=== PATIENT | female | born 1970 | race Caucasian/White ===

== ENCOUNTER 2023-11-09 23:46 | Observation (INO) | payer BC, SELFPAY ==
[2023-11-09 18:00] VITALS: BP 176/99
--- NOTE | 2023-11-09 19:27 | ED.GENMED ---
History of Present Illness
General
Chief Complaint: Dizziness
Source: patient
Time Seen by Provider: 11/09/23 19:05
Travel History
Have you had any contact with someone who has COVID-19?: No
Do you have any symptoms of coronavirus? Fever > 100 degrees, chills, cough, shortness of breath, sore throat, loss of taste or smell, muscle aches, or headache?: No
History of Present Illness
History of Present Illness:
This patient is a 53-year-old female who says that she was feeling her usual self until Tuesday when she got a massage. She was laying face down and was asked to assume the supine position. As soon as she did that she says she got the abrupt onset
of nausea and a 'spinning college drunk' sensation. She was able to complete the massage but when she stood up she again had an episode of vertigo. She says that since then, she notes recurrent episodes particularly when she rolls over or moves a
certain way. Yesterday, she was continue to have intermittent episodes of vertigo with certain movements but it was happening less frequently. She went to work today and had an episode while she was working in a closet but it is resolved. However
later today at approximately 2 PM while having her eyelashes done she felt like she was going to fall over when she sat up associated with nausea and dizziness described as spinning. She feels like it has not stopped since then, and worsens when
she moves a certain way. She denies double vision, chest pain, shortness of breath, trouble swallowing, slurred speech. She denies recent URI but does note a history of environmental allergies. When asked about weakness she denies weakness per se
but states that her left leg is kind of felt like it is 'giving out' from time to time which happens when she gets bursitis. She denies recent falls.
Pt got botox in forehead area bout 4 wks ago. On about October 27, L eye started to feel sl numb in upper lid and droopy. She doesn't appreciate a droop in mirror, however. No blurry vision.
Past History
Past History
ED Past Medical History: Asthma and Other (Erler's Danlos syndrome, ADHD)
ED Past Surgical History: Appendectomy (Carcinoid tumor) and Orthopedic
Social History
Tobacco: Former smoker
Alcohol: Occasional
Drug: None
Personal:
Living: with family
Employment: Employed
Phy Exam
Physical Exam
Physical Exam:
GENERAL: Alert , in no apparent distress
EYE: pupils equal and reactive, no photophobia, EOMI, no nystagmus through full range of motion
NECK: Supple, no significant adenopathy.
ENT: o/p clr, mmm.
CARDIAC: Regular rate and rhythm .
LUNGS: Clear breath sounds bilaterally, no acute respiratory distress, no wheezes/rales/rhonchi
ABDOMEN: Soft, without focal tenderness, no r/g, no cvat
NEUROLOGICAL: Alert and oriented, no focal neuro deficits, motor 5 out of 5, sensory intact, cranial nerves II through XII intact, [id number] normal
SKIN: Warm and dry, skin intact.
MUSCULOSKELETAL: No edema, well perfused.
PSYCH: Normal and appropriate interaction.
Course
Orders/Labs/Results
Orders:
Orders
11/09/23 18:04
Electrocardiogram (*1) Urgent
Reason for Study: Chest Pain
EKG- Treatment ONCE
11/09/23 19:27
CT Head & Neck Angio W/wo IV Urgent
Comment:
Reason For Exam: hx erhlos danlos syn, vertigo s/p neck massage
Cardiac Monitoring- Treatment ONCE
diazePAM [Valium Injection] 2 mg IV NOW STA
11/09/23 20:08
Basic Metabolic Panel Urgent
Complete Blood Count/No Diff Urgent
Abnormal Lab Results
11/09/23
20:08
MCH 31.3 H pg
(27.0-31.0)
BUN 26 H mg/dl
(7-17)
Creatinine 0.4 L mg/dL
(0.6-1.0)
Glucose 111 H mg/dl
(70-99)
11/09/23 20:08
11/09/23 20:08
Vital Signs
Initial and Last Documented VS:
Initial Vital Signs
Temp Pulse Resp BP Pulse Ox
98.1 F 71 20 176/99 100
11/09/23 18:00 11/09/23 18:00 11/09/23 18:00 11/09/23 18:00 11/09/23 18:00
Last Documented Vital Signs
Temp Pulse Resp BP Pulse Ox
98.1 F 69 14 123/83 98
11/09/23 18:00 11/09/23 22:01 11/09/23 22:01 11/09/23 22:01 11/09/23 22:01
*Critical Care Note
Total Time (30-74mins, 75-104mins- exclusive of procedures): Not Applicable
Update Note
Update Note:
Patient presents to the Emergency Department with ___dizziness
Number and Complexity of Problems Addressed at the Encounter
� Chronic conditions affecting care:
� Acute Exacerbation and/or Progression of Chronic Illness:
� Differential Diagnosis includes: But not limited to vertebral artery dissection, vestibulitis, labyrinthitis, etc.
Amount and/or Complexity of Data to be Reviewed and Analyzed
� I performed an independent evaluation of and my interpretation is:
EKG: Read by me, sinus bradycardia, no acute ischemia
CT: CTA head and neck unremarkable no dissection
Xrays:
Laboratory Studies: Generally unremarkable
Other:
� Review of other/old records reveals:
� Clinical information was obtained by an independent historian: Daughter who is at bedside
� Prescriptions/Medications Considered but not given:
� Further testing considered but not performed:
Risk of Complications and/or Morbidity or Mortality of Patient Management
� Social determinants of health affecting care:
� Discussion with other providers (PCP, Hospitalists, Consultants, etc):
� Escalation of care including admission/observation vs risk of discharge considered: 11:03 PM reassessment, patient feels better but still reporting vertigo especially when she turns her head. She is unable to get out of the
bed or walk due to continued symptoms. Given this, we will admit overnight to the hospital with consideration for neuroconsult/MRI in a.m. Patient does not have any specific central findings such as vertical nystagmus, focal neurological deficit,
etc. however intractable symptoms concerning.
ED Attending Note
-
Portions of this chart may have been created with voice recognition software.� Occasional wrong word or��sound alike� substitutions may have occurred due to the inherent limitations of voice recognition software.
Discharge Plan
Departure
Patient Disposition: Admit
Date of Disposition: 11/09/23
Time of Disposition: 23:02
Admit to: Telemetry
Presentation/result/management discussed w/ accepting MD/DO: Hospitalist
Condition: Fair
Discharge Problem:
Vertigo
Prescriptions:
No Action
duloxetine 20 MG capsule,delayed release(DR/EC)
20 mg PO DAILY
tramadol 50 MG tablet
1 - 2 tab PO Q4HPRN PRN (Reason: moderate to severe pain) Qty: 30 0RF
Referrals:
Fawad Woody MD [Family Provider] -
Interventions
Interventions:
*Risk Screen - Suicide Last Done: 11/09/23 18:00
*General Assessment Last Done: 11/09/23 18:00
*Neglect/Abuse Screening Last Done: 11/09/23 18:00
ED- Fall Risk Assessment Last Done: 11/09/23 19:35
*ED COVID-19 Vaccine History Last Done: 11/09/23 19:35
ED- Neurological Assessment Last Done: 11/09/23 19:35
ED Swallowing Screen Last Done: 11/09/23 21:20
Discharge Date and Time
Print Language: MALAWIAN
[2023-11-09 19:35] VITALS: BMI 25.2
[2023-11-09 20:15] LABS: Hematocrit 46.1 % (37.0-47.0); Hemoglobin 15.3 g/dL (12.0-16.0); Mean Corp Hgb Conc. 33.2 g/dL (33.0-37.0); Mean Corpuscular Hgb 31.3 pg (27.0-31.0); Mean Corpuscular Volume 94.3 fL (81.0-99.0); Mean Platelet Volume 10.2 fL (7.4-10.4); Platelet Count 214 10^3/uL (130-400); Red Blood Cell Count 4.89 10^6/uL (4.20-5.40); White Blood Cell Count 6.6 10^3/uL (4.8-10.8)
[2023-11-09 20:28] LABS: Blood Urea Nitrogen 26 mg/dl (7-17); Calcium 9.8 mg/dl (8.4-10.2); Carbon Dioxide 24 mmol/L (22-30); Chloride 104 mmol/L (98-107); Glucose 111 mg/dl (70-99); Potassium 3.7 mmol/L (3.5-5.1); Sodium 138 mmol/L (135-145); eGFR > 60.00
[2023-11-09 20:30] VITALS: BP 168/112
[2023-11-09] MEDS: VALIUM INJECTION 2 MG IV (21:00)
[2023-11-09 21:43] VITALS: BP 135/100
[2023-11-09 22:01] VITALS: BP 123/83
--- NOTE | 2023-11-09 23:52 | HPS.HSE ---
Family Physician
-
Family Physician: Fawad Woody
Chief Complaint
-
vertigo
History of Present Illness
53-year-old female past medical history of asthma, Catrachita-Danlos syndrome, ADHD, presenting with vertigo. She was feeling her usual self until Tuesday when she got a massage. She was laying facedown was asked to assume the supine position. Today
she did that she got the abrupt onset of nausea and spinning sensation. She was able to complete massage but when she stood up she again had an episode of vertigo. Since then she notes recurrent episodes particularly when she rolls over or moves a
certain way. She went to work today and had an episode while she was working in a closet but resolved. Later today at 2 PM while having her eyelashes done she felt like she was going to fall when she sat up associated nausea and dizziness
described as spinning. Symptoms have not resolved since then. Denies any hearing loss or tinnitus. She denies double vision, chest pain, shortness of breath, difficulty swallowing. She did have an episode of vertigo several years ago which was
much less severe.
Daughter did notice that she had some slurred speech today. She denies any recent falls.
She denies any weakness but did feel like her left leg is giving out from time to time but happens when she gets iliotibial band symptoms on her left leg.
She got Botox to her forehead 4 weeks ago. Over the past week her left eye started to feel slightly numb. No headache. No blurry vision.
Denies smoking or alcohol.
Medical History
Past Medical History
Past Medical History: Reports Other (asthma, Catrachita-Danlos syndrome, ADHD,)
Past Surgical History: Reports None
Social History
Tobacco: Non-smoker
Alcohol: None
Drug: None
Family History
Family History: Not pertinent
Allergies / Home Medications
Allergies reflects when Allergies were last updated in [email or web address].
Home Medications with original date entered in [email or web address]
Allergy/Medication List:
Allergies
Allergy/AdvReac Type Severity Reaction Status Date / Time
cefazolin [From Ancef] Allergy BRONCHOSPAS Verified 11/09/23 18:03
M
fentanyl Allergy Shortness Verified 11/09/23 18:03
of
Breath/SWELLING
gluten Allergy bloating Verified 11/09/23 18:03
lactose Allergy bloating Verified 11/09/23 18:03
midazolam HCl [From Versed] Allergy Shortness Verified 11/09/23 18:03
of
Breath/SWELLING
naproxen Allergy stomach Verified 11/09/23 18:03
ulcer
propofol Allergy Shortness Verified 11/09/23 18:03
of Breath
Home Medications
Nutrafil 1 tab PO BID 11/09/23
methylphenidate HCl 27 mg tablet,extended release 24 hr (Concerta) 27 mg PO DAILY 11/09/23
methylphenidate HCl 5 mg tablet 5 mg PO QPM PRN work focus 11/09/23
Review of Systems
-
History Source: Patient
A 12 point ROS was completed and negative except as noted: Yes
Constitutional: Reports No Symptoms
EENT: Reports No Symptoms
Respiratory: Reports No Symptoms
Cardiac: Reports No Symptoms
Abdomen/GI: Reports No Symptoms
: Reports No Symptoms
Musculoskeletal: Reports No Symptoms
Skin: Reports No Symptoms
Neurological: Reports No Symptoms
Endocrine: Reports No Symptoms
Hematologic/Lymphatic: Reports No Symptoms
Psych: Reports No Symptoms
Physical Exam
Vital Signs
Vital Signs
Temp Pulse Resp BP Pulse Ox
98.1 F 62 11 123/83 96
11/09/23 18:00 11/09/23 22:15 11/09/23 22:15 11/09/23 22:01 11/09/23 23:15
Physical Exam
General: Well Developed, Well Nourished and No Apparent Distress
HEENT: NormoCephalic, Moist mucous membranes and Atraumatic
Respiratory: Clear
Cardiac: S1/S2 and Regular Rhythm; No Murmur or Rub
GI: Soft, Non Tender, Non Distended and Normal Bowel Sounds; No Organomegaly
Rectal: Deferred by Provider
Musculoskeletal: No Clubbing, No Cyanosis and No Edema
Skin: No Rash
Neuro: Nonfocal/grossly intact
Laboratory Results
-
11/09/23 20:08
11/09/23 20:08
Data Reviewed
-
Lab Data: Labs Reviewed by me
Old Records: Reviewed
Impression/Plan
-
IMPRESSION:
PLAN:
# Intractable vertigo likely vestibular neuritis, rule out CVA
-Facial numbness and tingling likely due to recent Botox
-No nystagmus on examination, head impulse test negative
-CTA head and neck without any vascular occlusion, aneurysm or dissection
-Check MRI brain
-Continue Valium as needed
-Zofran as needed
-Will likely benefit from prednisone if MRI negative
-Neurology consulted
-Vestibular therapy
Ehrlers Danlos syndrome
ADHD
-Continue methylphenidate
Asthma
Full code
DVT prophylaxis�SCDs
Regular diet
[2023-11-10] VITALS (10 sets, daily range): BP systolic 118–155; BP diastolic 73–101; PULSE 71; O2SAT 96; BMI 24.1
[2023-11-10] MEDS: VALIUM INJECTION 2 MG IV ×3 (00:26→21:05)
--- NOTE | 2023-11-10 01:30 | PTCARENOTE ---
Pt arrived to unit from ED and ambulated with x1 assist from stretcher to bed. VS stable on admission. Pt denies pain but reports blurred vision and dizziness with movement. PRN IV Valium provided to pt and oriented her to room, call schuster within
reach.
[2023-11-10 08:09] LABS: % Basophils 0.5 % (0-2); % Eosinophils 0.9 % (0-6); % Immature Granulocytes 0.2 % (0-0.5); % Lymphocytes 26.5 % (20.5-51.1); % Monocytes 6.8 % (1.7-9.3); % Neutrophils 65.1 % (42.2-75.2); Absolute Eosinophils 0.1 10^3/uL (0-0.7); Absolute Lymphocytes 1.5 10^3/uL (1.2-3.4); Absolute Monocytes 0.4 10^3/uL (0.1-0.6); Absolute Neutrophils 3.7 10^3/uL (1.4-6.5); Hematocrit 43.4 % (37.0-47.0); Hemoglobin 14.7 g/dL (12.0-16.0); Mean Corp Hgb Conc. 33.9 g/dL (33.0-37.0); Mean Corpuscular Hgb 31.3 pg (27.0-31.0); Mean Corpuscular Volume 92.3 fL (81.0-99.0); Mean Platelet Volume 10.2 fL (7.4-10.4); Nucleated Red Blood Cells % 0 %; Platelet Count 232 10^3/uL (130-400); Red Cell Dist. Width 12.1 % (11.5-14.5); White Blood Cell Count 5.6 10^3/uL (4.8-10.8)
--- NOTE | 2023-11-10 08:17 | CON.NEURO4 ---
Addendum entered and electronically signed by Stevan Wells MD 11/10/23 11:21:
I saw and evaluated the patient I reviewed the note by Viridiana Pickett and agree with the findings with the following comments:
53-year-old right-handed woman with a past medical history of Catrachita-Danlos syndrome, ADHD who presents to the hospital with several instances of vertigo which seem to become much worse after massage on Monday 11/06. She did have a few episodes of
short lasting vertigo even before 11/06 but the most significant problem started after laying down and massage table flat with her face turned down and after she flipped over began severe vertigo with nausea lasting 1 to 2 minutes and then resolving
spontaneously. She had a couple similar episodes with short lasting vertigo and at one point was told that there seem to be some abnormal movements of her eyes.
Currently feels no overt vertigo at this time but feels like a drunken feeling. She has had a headache for about the past day in the left frontal temporal portion of the head. Vision seems blurred with eyes both open or only 1 eye open in either
eye. No recent head or neck trauma.
Has had some left facial numbness recently.
Relates a history of headaches which can last several hours to few days with some mild photophobia no vision changes no nausea vomiting or paresthesia with these. They are generally very unilateral she can member which side exactly, possibly has
some ptosis on the left side with these headaches.
Neurologic examination:
Normal mental status
Very subtle right word beating nystagmus on right gaze, otherwise normal cranial nerves, head impulse testing was normal.
Motor or sensory reflexes and finger-nose coordination is normal.
Did show abnormal nystagmus as well as dizziness with [place]-Hallpike maneuver most prominently with the right head turn.
CTA of the head and neck with no dissection of the vertebral or carotid arteries in the neck and no intracranial dissection seen
Assessment: Very likely a peripheral vertigo either right-sided benign paroxysmal positional vertigo or right-sided vestibular neuritis. Expect this will improve with time as well as steroid treatment and vestibular therapy. Less likely this is
vertiginous migraine but remains in differential diagnosis.
Patient also sounds like she has a primary headache disorder more likely migraine without aura rather than tension headache given the report of some left eye ptosis unilateral quality and mild photophobia and the headaches last several hours to a
few days, less likely tension headache and not at all consistent with trigeminal autonomic cephalgia.
Recommendations
-Would obtain brain MRI without contrast in an abundance of caution given Catrachita-Danlos syndrome and some of the left-sided facial paresthesia and headaches
-Start prednisone 50 mg p.o. for 7 days without taper
-Vestibular therapy
-Educated on Marek maneuver
Original Note:
Documented by User: Viridiana Montalvo NP 11/10/23 10:52
Consultation - Neurology 4
-
CONSULTING PHYSICIAN: David Wells MD
REFERRING PHYSICIAN: Hospitalists/Dr. Cummings
DICTATED BY: YUNG Mitchell
DATE/TIME OF REQUEST: 11/09/23
DATE/TIME OF CONSULTATION: 11/10/23
Reason for Consultation: Vertigo
History of Present Illness:
This is a 53-year-old right-handed female with a PMH of ADHD, Catrachita-Danlos syndrome, and asthma who has presented to the hospital on 11/09/23 with report of vertigo. Patient reports that on 10/28/23 she noticed some left eyelid drooping, a tingling
sensation around her left eye, and slight double vision especially when looking left or upward. She had cosmetic Botox on September 30, 2023 and thought maybe it was due to this, but thought it odd that it started on month later. About two weeks ago
around the same time, she reports having allergy symptoms for a few days including sinus congestion, pressure, and runny nose. Otherwise, she denies any fevers or GI illnesses. Starting about one week ago she has had a sensation of brain fog and a
rare, brief light-headed dizzy sensation lasting only seconds, as if she hadn't eaten all day. Three days ago on 11/07/23 she was laying face down on a massage table and reports that when she flipped over onto her back (she cannot recall which
direction she made this turn), she suddenly developed a spinning sensation and severe nausea. This subsided in less than one minute and she was feeling almost back to her baseline. Since then, she has had several more episodes similar to this,
typically associated with lying flat on her back in bed, all lasting for less than one minute. At one point her coworker told her that her eyes were 'darting' back and forth. Then yesterday (11/08/23), she was reclining in a chair having her
eyelashes done around 1500 when she suddenly developed the spinning sensation and nausea again, this time however her symptoms did not resolve quickly, prompting her to come to the ER for evaluation. She endorses several months of left neck
discomfort, prompting CTA head/neck imaging to be obtained in the ER, which is negative for any acute abnormalities. She reports that her dizziness did not improve until 2300 last night. PRN Valium helped somewhat.
Today (11/10/23), she still reports feeling not quite right, as if she is 'drunk.' The dizziness seems to return with upward gaze and her gait is unsteady. She reports several weeks of a cracking sound in her right eye associated with swallowing.
She denies any hearing loss, tinnitus, pressure in her ears, weakness, chest pain, palpitations, and shortness of breath. She endorses a 4/10 headache mostly in the left front of her head associated with mild photophobia and an eye strain sensation
when looking left. She does report a history of headaches about 3-4/month since she was a teenager. Her headaches are associated with mild photo/phonophobia, no nausea/vomiting. She typically takes Advil and is still able to go about her day. She
denies any vision changes like flashes of light, zig-zag lines, or vision loss with her headaches. Her daughter also gets headaches, typically associated with her menstrual cycle. Her vision has seemed blurry for the past week, especially in the
left eye. Yesterday her daughter reports that her speech sounded briefly 'jumbled' but otherwise she denies any speech/swallow difficulty. Her LLE has felt 'sore' since the beginning of October 2023 and sometimes 'thomas' on her. She attributes this to
her Catrachita-Danlos syndrome/IT band issues. She has never had genetic testing for Catrachita-Danlos syndrome but reports frequent ligament/muscle tears in the past and hyperflexibility. She had one episode of vertigo in about 8 years ago following a
cold, but reports it was much shorter in duration and less severe. She denies any history of head/neck trauma, TIA, or stroke.
Past Medical History: ADHD, Catrachita-Danlos syndrome, asthma
Surgical History: Appendectomy (carcinoid tumor), orthopedic
Family History: Paternal grandmother and grandfather- CVA. Maternal grandfather- [place] in his 50's. Mother- possible Catrachita-Danlos syndrome. Daughter- headaches.
Social History: Former tobacco. Occasional alcohol. Denies illicit drug use.
Allergies: Cefazolin, fentanyl, gluten, lactose, midazolam, naproxen, propofol.
Home Medications: See below.
Review of Symptoms:
Patient denies any fever, chest pain, shortness of breath, or symptoms.
�Per the HPI.�All systems are reviewed negative except above.
Physical Exam:
The patient is afebrile, abdomen is nondistended, breathing is unlabored, skin is warm and dry, no edema.
NIH Stroke Scale:
I performed the NIH stroke scale on the patient on 11/10/23 at 0900. The patient scored 1 points on the NIH stroke scale assessment, which were assigned as follows: See below.
Neurologic Examination:
The patient is awake, alert and oriented x 3. She is able to follow commands and answer questions appropriately. There is no aphasia or dysarthria. On cranial nerve assessment, pupils are 3 mm bilateral, round and reactive to light and
accommodation. Visual adame are full. Extraocular movements are intact. Facial sensations are intact and bilaterally symmetrical, there is slight left eye ptosis. Hearing is intact bilaterally to finger rub. Tongue palate and uvula are midline.
Sternocleidomastoid strengths are full bilaterally. Motor strengths are 5/5 bilateral upper and lower extremities on medical research [place] scale. There is no drift or involuntary movement noted. Deep tendon reflexes are 1+ bilateral upper and
lower extremities and Babinski is absent bilaterally. Sensations of touch, temperature and vibration are intact and bilaterally symmetrical. There was no extinction noted on double simultaneous stimulation. Coordination is intact by finger to nose
bilaterally. [place]-Hallpike is positive on the right side.
Lab Results: See below.
Neuro Imaging:
1. CTA Head/Neck 11/09/23: No significant vascular occlusion, aneurysm or dissection.
Differentials for the patient's presentation include:
1. Overlapping peripheral vertigo syndromes likely producing patient's symptoms. Per PT evaluation, positive for vestibular neuritis with left gaze wearing vestibular goggles. Vero-Hallpike maneuver suggestive of a right-sided BPPV.
2. Migraine without aura, likely playing a role in dizziness and left eye drooping/sensation change.
3. Very low concern for structural brain abnormality, but cannot entirely exclude this.
4. CTA head/neck negative for vascular abnormality.
Patient has the following risk factors for their symptoms: Migraine headaches, Botox, allergy symptoms, Catrachita-Danlos.
Recommendations:
-MRI brain noncontrast ordered/pending. PRN lorazepam 0.5mg on-call for MRI due to claustrophobia.
-Goal normotension.
-Initiate a prednisone burst, 50mg daily x7 days.
-Patient provided with self-Marek maneuver instructions, should perform this about 3 times per day for the next several days.
-Continue vestibular physical therapy.
-No driving until symptoms resolve.
-DVT prophylaxis.
Discussed patient care with: Dr. Wells, the patient, patient's daughter
Vital Signs and Labs
-
Vital Signs and Labs:
Vital Signs
Temp Pulse Resp BP Pulse Ox
98.0 F 72 18 118/73 98
11/10/23 07:00 11/10/23 07:00 11/10/23 07:00 11/10/23 07:00 11/10/23 07:00
Lab Results
11/10/23 07:46
11/10/23 07:46
Sodium 139 mmol/L (135-145) 11/10/23 07:46
Potassium 4.3 mmol/L (3.5-5.1) 11/10/23 07:46
BUN 15 mg/dl (7-17) 11/10/23 07:46
Glucose 99 mg/dl (70-99) 11/10/23 07:46
Calcium 9.9 mg/dl (8.4-10.2) 11/10/23 07:46
Medications
-
Active Medications
Generic Name Dose Route Start Last Admin
Trade Name Freq PRN Reason Stop Dose Admin
Diazepam 2 mg 11/10/23 01:10 11/10/23 01:46
Diazepam 10 Mg/2 Ml Inj IV 12/08/23 01:09 2 mg
Q6HPRN PRN Administration
vertigo
Lorazepam 0.5 mg 11/10/23 10:15
Lorazepam 2 Mg/Ml Vial IV 12/08/23 10:14
ONCE PRN PRN
claustrophobia, on-call for MR
Methylphenidate HCl 5 mg 11/10/23 01:10
Methylphenidate 5 Mg Tablet PO 11/24/23 01:09
QPM PRN
work focus
Non-Formulary Medication 27 mg 11/10/23 08:00
Methylphenidate Hcl [Concerta] PO 12/08/23 07:59
DAILY ERIKA
Ondansetron HCl 4 mg 11/10/23 01:10
Ondansetron 4 Mg/2 Ml Vial IV 12/08/23 01:09
Q6HPRN PRN
NAUSEA/VOMITING
Sodium Chloride 0 flush 11/10/23 02:00
Sodium Chloride 0.9% (Flush) Syringe IV 12/08/23 01:59
PER PROTOCOL ERIKA
Sodium Chloride 0.25 ml 11/10/23 10:19
Nss (Pf) 10 Ml Vial For Ativan 0.5 Mg Dose IV 12/08/23 10:18
ONCE PRN PRN
IV LORAZEPAM DILUTION
Home Medications
�Medication �Instructions �Recorded
Nutrafil 1 tab PO BID 11/09/23
methylphenidate HCl 27 mg 27 mg PO DAILY 11/09/23
tablet,extended release 24 hr
(Concerta)
methylphenidate HCl 5 mg tablet 5 mg PO QPM PRN work focus 11/09/23
NIH Stroke Score
Subsequent NIH Scale
Date of Subsequent NIH Scale: 11/10/23
Time of Subsequent NIH Scale: 09:00
NIH Stroke Score
Level of Consciousness: 0 - Alert
LOC Questions: 0-Answers both correctly
LOC Commands: 0-Performs both correctly
Best Horizontal Gaze: 0-Normal
Visual Adame: 0=Normal, no visual loss
Facial Palsy: 1=Minor paralysis
Motor - Right Arm: 0=No drift 10 seconds
Motor - Left Arm: 0=No drift 10 seconds
Motor - Right Le-No drift 5 seconds
Motor - Left Le-No drift 5 seconds
Limb Ataxia: 0-Absent
Sensation: 0-Normal
Best Language: 0-No aphasia
Dysarthria: 0-Normal
Extinction and Inattention: 0-No abnormality
Total Score:: 1

Documented by User: Stevan Wells MD 11/10/23 11:16
NIH Stroke Score
NIH Stroke Score
Total Score:: 1
[2023-11-10 08:36] LABS: ALT (SGPT) 28 U/L (0-35); AST (SGOT) 25 U/L (14-36); Albumin 4.5 g/dl (3.5-5.0); Alkaline Phosphatase 70 U/L (38-126); Blood Urea Nitrogen 15 mg/dl (7-17); Calcium 9.9 mg/dl (8.4-10.2); Carbon Dioxide 24 mmol/L (22-30); Chloride 108 mmol/L (98-107); Estimated Creatinine Clearance 100 ml/min; Glucose 99 mg/dl (70-99); Potassium 4.3 mmol/L (3.5-5.1); Sodium 139 mmol/L (135-145); Total Bilirubin 1.1 mg/dl (0.2-1.3); Total Protein 7.2 g/dl (6.3-8.2); eGFR > 60.00
--- NOTE | 2023-11-10 10:22 | W.PN.HOSP.TC ---
Today's Communication/Plan
-
see A/P
Assessment / Plan
Assessment / Plan
HPI: 53-year-old female past medical history of asthma, Catrachita-Danlos syndrome, ADHD, presented with vertigo. She was feeling her usual self until Tuesday when she got a massage. She was laying facedown and was asked to assume the supine position.
She developed an abrupt onset of nausea and spinning sensation. She was able to complete massage but when she stood up she again had an episode of vertigo. Since then she notes recurrent episodes particularly when she rolls over or moves a certain
way. She went to work and had an episode. On DOA, while having her eyelashes done she felt like she was going to fall when she sat up, this wsa associated nausea and dizziness described as spinning. Symptoms have not resolved. Denies any hearing
loss or tinnitus. She denies double vision, chest pain, shortness of breath, difficulty swallowing. She did have an episode of vertigo several years ago which was much less severe.
Daughter did notice that she had some slurred speech. She denies any recent falls.
She denies any weakness but did feel like her left leg was giving out from time to time but happens when she gets iliotibial band symptoms on her left leg.
She got Botox to her forehead 4 weeks ago. Over the past week her left eye started to feel slightly numb. No headache. No blurry vision.
Denies smoking or alcohol.
A/P:
# Intractable vertigo likely vestibular neuritis, rule out CVA
Facial numbness and tingling likely due to recent Botox
No nystagmus on examination
CTA head and neck without any vascular occlusion, aneurysm or dissection
Follow MRI brain
Continue Valium as needed
Added prednisone 50 mg x7 days to cover R sided BPPV vs vestibular neuritis
Zofran as needed
Neurology on board
Cont Vestibular therapy
# Ehrlers Danlos syndrome
# ADHD
Continue methylphenidate
# Asthma
Full code
DVT prophylaxis�SCDs
Regular diet
DW daughter at bedside
Anticipated Discharge: Within 24 hours
Subjective/Interval History
-
Date of Service: November 10, 2023
Objective Data
-
Labs:
Laboratory Results
11/10/23
07:46
WBC 5.6
Hgb 14.7
Hct 43.4
Plt Count 232
Sodium 139
Potassium 4.3
Chloride 108 H
Carbon Dioxide 24
BUN 15
Creatinine 0.4 L
Glucose 99
Calcium 9.9
Total Bilirubin 1.1
AST 25
ALT 28
Alkaline Phosphatase 70
Vital Signs:
Vital Signs
Temp Pulse Resp BP Pulse Ox
36.7 C 72 18 118/73 98
11/10/23 07:00 11/10/23 07:00 11/10/23 07:00 11/10/23 07:00 11/10/23 07:00
I&O
11/09/23 11/10/23 11/11/23
06:59 06:59 06:59
Intake Total 120 / 120
Balance 120 / 120
Review of Systems
-
Neuro: Reports Dizzy and Other (vertigo); Denies Headache
Physical Exam
-
General: Well Developed, Well Nourished, No Apparent Distress, Comfortable and Conversant; Negative Respiratory Distress
HEENT: Normocephalic, Atraumatic, Nose Appears Normal and Ears Appear Normal; Negative Oxygen
Respiratory: Clear to Auscultation and Non Labored Respirations; Negative Accessory Resp Muscle Use
Cardiac: Regular Rhythm and S1/S2
GI: Soft, Nontender, Nondistended and Normal Bowel Sounds
Skin: Warm and Dry
Neuro: Awake, Alert, Oriented and AO x 3
Psych: Calm and Intact Judgement/Insight
Data Reviewed
-
CT Scan: Report Reviewed by me
Labs: Labs Reviewed by me
[2023-11-10] MEDS: ATIVAN 0.5 MG IV (10:29)
[2023-11-10] MEDS: NSS (PRESERVATIVE FREE) 0.25 ML IV (10:29)
[2023-11-10] MEDS: DELTASONE 50 MG PO (12:13)
--- NOTE | 2023-11-10 15:53 | CM ---
Patient seen bedside with daughter, initial assessment completed. Patient resides with her spouse and children in a multiple story home, 5/6 steps to enter. Patient denies DME, VN, or SNF. Patient confirms PCP Dr. Woody, pharmacy [facility].
OBS status reviewed, signed, placed in chart. CM will continue to follow for discharge planning needs.
Plan; home no needs likely.
[2023-11-11 03:49] VITALS: BP 100/68
[2023-11-11 06:07] LABS: Hematocrit 40.1 % (37.0-47.0); Hemoglobin 13.5 g/dL (12.0-16.0); Mean Corp Hgb Conc. 33.7 g/dL (33.0-37.0); Mean Corpuscular Hgb 31.4 pg (27.0-31.0); Mean Corpuscular Volume 93.3 fL (81.0-99.0); Mean Platelet Volume 10.5 fL (7.4-10.4); Platelet Count 219 10^3/uL (130-400); Red Cell Dist. Width 12.1 % (11.5-14.5); White Blood Cell Count 8.3 10^3/uL (4.8-10.8)
[2023-11-11 06:36] LABS: Blood Urea Nitrogen 26 mg/dl (7-17); Calcium 9.8 mg/dl (8.4-10.2); Carbon Dioxide 23 mmol/L (22-30); Chloride 107 mmol/L (98-107); Estimated Creatinine Clearance 100 ml/min; Glucose 101 mg/dl (70-99); Potassium 3.7 mmol/L (3.5-5.1); Sodium 139 mmol/L (135-145); eGFR > 60.00
[2023-11-11 07:40] VITALS: BP 112/76
[2023-11-11 08:11] VITALS: BP 112/76
[2023-11-11] MEDS: DELTASONE 50 MG PO (08:53)
[2023-11-11] MEDS: NSS (PRESERVATIVE FREE) 10 ML INJ (09:38)
[2023-11-11] MEDS: dimenhyDRINATE 50 MG IV (09:38)
[2023-11-11] MEDS: MAXALT MLT (ORALLY DISINTEGRATING) 10 MG PO (09:39)
--- NOTE | 2023-11-11 10:27 | W.PN.NEURO.1 ---
Addendum entered and electronically signed by Andrew Scanlon MD 11/11/23 11:26:
Studies reviewed.
I have personally examined the patient. I reviewed and agree with the PREVOCATIONAL/REHABILITATION COUNSELOR's Note.
My addenda:
Awake, alert, interactive. No acute distress.
Speech intact.
Follows 2-step requests w/o difficulty. No tremor.
Extra-ocular movements grossly intact.
Facial movements full and symmetric. Hearing intact to normal conversational volume.
Normal UE movements bilaterally.
Neck: full ROM.
Chest: no dyspnea
Heart: no JVD
Ext: (-) Clubbing, (-) Cyanosis, (-) Edema
IMPRESSIONS/RECOMMENDATIONS:
Abrupt onset of combination vertigo and headache which may represent migraine with aura
Additionally, the patient is demonstrating mild ptosis on the left and mild left lower extremity weakness at hip flexors. Differential diagnosis for these 2 issues includes myasthenia gravis
Findings demonstrated by MRI of the brain are not suggestive strongly of a single clinical issue such as multiple sclerosis
The patient should undergo as an outpatient MRI of the brain with and without contrast in the next month
Patient should undergo outpatient MRI of the cervical spine with and without contrast to better determine if there is a spinal lesion producing the patient's symptomatology
Check blood work for potential metabolic abnormalities producing symptomatology
Check acetylcholine receptor antibodies
D/W patient
Will continue to follow as outpatient.
Original Note:
Documented by User: Viridiana Montalvo NP 11/11/23 10:48
Today's Communication / Plan
-
.
Neuro Assessment/Plan
Assessment
This is a 53-year-old right-handed female with a PMH of Catrachita-Danlos syndrome, ADHD, asthma who presented to on 11/09/23 with report of vertigo, left frontotemporal headache, left eye blurry vision/paresthesias, intermittent diplopia, left neck
discomfort, left-sided swallowing difficulty, and intermittent LLE weakness.
-CTA of the head and neck 11/09/23 with no dissection of the vertebral or carotid arteries in the neck and no intracranial dissection seen.
-MRI brain noncontrast 11/10/23: No evidence of acute intracranial abnormality. Mild to moderate T2 and FLAIR white matter hyperintensities, commonly seen with aging and usually attributed to small vessel ischemic disease. These are mainly within the
frontal lobes. These white matter hyperintensities are nonspecific and can also be seen in association with migraine headaches, presumably on the basis of vasculitis. These lesions can also be seen with demyelinating processes such as multiple
sclerosis or Lyme disease. The distribution is not considered highly suggestive of multiple sclerosis, although usually needs to be excluded on clinical grounds as well. 2-3 mm round focus of increased T1-weighted signal within the right pituitary
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 Further evaluation is advised with dedicated MRI of the brain/pituitary, which can serve as a baseline exam for follow-up. Paranasal sinus disease as described. Increased
T2-weighted signal within the mastoid air cells, right greater than left, and most likely trapped fluid. Please correlate clinically for any signs or symptoms of mastoiditis.
I. Very likely a peripheral vertigo either right-sided benign paroxysmal positional vertigo or right-sided vestibular neuritis. Expect this will improve with time as well as steroid treatment and vestibular therapy. Less likely this is vertiginous
migraine but remains in differential diagnosis.
II. Patient also sounds like she has a primary headache disorder more likely migraine without aura rather than tension headache given the report of some left eye ptosis unilateral quality and mild photophobia and the headaches last several hours to
a few days, less likely tension headache and not at all consistent with trigeminal autonomic cephalgia.
III. MRI brain negative for any acute abnormalities but is suggestive of nonspecific white matter hyperintensities and a small complex right pituitary cyst.
Plan
-Would obtain repeat MRI brain with contrast in addition to MRI cervical spine w/ and w/o contrast for follow-up; this are nonurgent and can be completed as an outpatient.
-Continue prednisone 50 mg p.o. for 7 days without taper.
-Provide dimenhydrinate 50mg IV x1 now for dizziness and Rizatriptan 10mg x1 now for headache.
-Needs inpatient/outpatient PT/vestibular therapy.
-ST evaluation and swallowing study given unclear source of swallowing difficulty.
-Educated on Marek maneuver, written materials provided. Patient should perform this at least 3 times per day until symptoms resolve.
-Checking ESR, CLARA, acetylcholine receptor antibodies.
-Patient needs to follow-up with Neurology as an outpatient in about 4 weeks, may see the PREVOCATIONAL/REHABILITATION COUNSELOR or one of the physicians.
Subjective/Objective
Subjective Data
Date of Service: November 11, 2023
No acute events overnight. Patient reports feeling overall improved but still reports a slight constant dizzy sensation at rest and increased dizziness with upward gaze. Additionally, she notes ongoing left eyelid drooping, horizontal diplopia with
performing exam EOMs only, blurry vision in her left eye only, tingling around her left eye, difficulty swallowing on the left side of her mouth only, and LLE intermittent weakness. She still reports a mild left frontal headache with mild
photophobia. She denies any vomiting, speech difficulty, chest pain, palpitations, and shortness of breath.
Objective Data
Vital Signs
Temp Pulse Resp BP Pulse Ox
98.1 F 73 14 112/76 98
11/11/23 07:40 11/11/23 07:40 11/11/23 07:40 11/11/23 07:40 11/11/23 08:00
Lab Results
11/11/23 05:31
11/11/23 05:31
Sodium 139 mmol/L (135-145) 11/11/23 05:31
Potassium 3.7 mmol/L (3.5-5.1) 11/11/23 05:31
BUN 26 mg/dl (7-17) H 11/11/23 05:31
Glucose 101 mg/dl (70-99) H 11/11/23 05:31
Calcium 9.8 mg/dl (8.4-10.2) 11/11/23 05:31
Patient Allergies
cefazolin [From Ancef] Allergy (Verified 11/09/23 18:03)
BRONCHOSPASM
fentanyl Allergy (Verified 11/09/23 18:03)
Shortness of Breath/SWELLING
gluten Allergy (Verified 11/09/23 18:03)
bloating
lactose Allergy (Verified 11/09/23 18:03)
bloating
midazolam HCl [From Versed] Allergy (Verified 11/09/23 18:03)
Shortness of Breath/SWELLING
naproxen Allergy (Verified 11/09/23 18:03)
stomach ulcer
propofol Allergy (Verified 11/09/23 18:03)
Shortness of Breath
Review of Systems
-
History Source: Patient
EENT: Blurry Vision and Swallowing Difficulty; Negative Decreased Vision
Respiratory: Negative Cough or Trouble Breathing
Cardiac: Negative Chest Pain or Palpitations
Abdomen/GI: Nausea; Negative Vomiting
Genitourinary: Negative Dysuria
Neuro: Dizzy, Headache, Weakness and Numbness; Negative Ataxia, Tremors or Speech Problem
Physical Exam
-
General: Well Developed, Well Nourished and No Apparent Distress
Eyes: PERRLA; Negative No Ptosis
HEENT: Normocephalic and Atraumatic
Neck: Full Range of Motion
Respiratory: No Dyspnea
GI: Non-distended
Extremities: No Clubbing, No Cyanosis and No Edema
Psych: Unremarkable
Extended Neurological Exam
Mood & Affect: Mood Unremarkable and Affect Unremarkable
Attention Span & Concentration: Awake, Alert, Interactive and No Difficulty with 2 Step Request
Memory: Unremarkable and Able to Recall
Tremor: Hand Tremor Absent and Head Tremor Absent
Involuntary Movement: None
Speech: Quality Unremarkable and Quantity Unremarkable
Cranial Nerve II: Left Eye: Pupillary Reactivity Unremarkable, Pupillary Size Unremarkable and Visual Adame Intact
Cranial Nerve II: Right Eye: Pupillary Reactivity Unremarkable, Pupillary Size Unremarkable and Visual Adame Intact
Cranial Nerves III, IV, : Extraocular Movement: Extraocular Movement Full in all Directions
Cranial Nerve V: Facial Sensation: Intact to Light Touch
Cranial Nerve VII: Facial Symmetry: Reduced (slight left eye ptosis, more pronounced with prolonged upgaze)
Cranial Nerve VIII: Hearing: Unremarkable Hearing to Normal Conversational Volume
Cranial Nerves IX, X: Palate Movement: Palate Elevation Symmetric
Cranial Nerve XI: Shoulder Shrug: Unremarkable
Cranial Nerve XII: Tongue Protusion: Midline
Muscle Strength, Overall: Reduced on Left (LLE hip flexion 4/5)
Pronator Drift: No Drift in Upper Extremities and No Drift in Lower Extremities
Deep Tendon Reflexes: Unremarkable Throughout
Cold Sensation: Unremarkable
Vibration Sensation: Unremarkable
Touch Sensation: Unremarkable
Coordination: [id number] Testing Unremarkable
Babinski Sign: Absent Bilaterally
Data Reviewed
-
CT-A: Report Reviewed and Image Reviewed
MRI Head: Report Reviewed and Image Reviewed
Labs: Report Reviewed
Reviewed with: Physician and Patient
Medications
-
Active Medications
Generic Name Dose Route Start Last Admin
Trade Name Freq PRN Reason Stop Dose Admin
Diazepam 2 mg 11/10/23 01:10 11/10/23 21:05
Diazepam 10 Mg/2 Ml Inj IV 12/08/23 01:09 2 mg
Q6HPRN PRN Administration
vertigo
Methylphenidate HCl 5 mg 11/10/23 01:10
Methylphenidate 5 Mg Tablet PO 11/24/23 01:09
QPM PRN
work focus
Non-Formulary Medication 27 mg 11/10/23 08:00
Methylphenidate Hcl [Concerta] PO 12/08/23 07:59
DAILY ERIKA
Ondansetron HCl 4 mg 11/10/23 01:10
Ondansetron 4 Mg/2 Ml Vial IV 12/08/23 01:09
Q6HPRN PRN
NAUSEA/VOMITING
Prednisone 50 mg 11/10/23 11:00 11/11/23 08:53
Prednisone 50 Mg Tablet PO 11/17/23 10:59 50 mg
DAILY ERIKA Administration
Sodium Chloride 0 flush 11/10/23 02:00
Sodium Chloride 0.9% (Flush) Syringe IV 12/08/23 01:59
PER PROTOCOL ERIKA
Home Medications
�Medication �Instructions �Recorded
Nutrafil 1 tab PO BID 11/09/23
methylphenidate HCl 27 mg 27 mg PO DAILY 11/09/23
tablet,extended release 24 hr
(Concerta)
methylphenidate HCl 5 mg tablet 5 mg PO QPM PRN work focus 11/09/23

Documented by User: Andrew Scanlon MD 11/11/23 11:23
Past History
Past History
ED Past Medical History: Asthma and Other (Erler's Danlos syndrome, ADHD)
ED Past Surgical History: Appendectomy (Carcinoid tumor) and Orthopedic
Social History
Tobacco: Former smoker
Alcohol: Occasional
Drug: None
Personal:
Living: with family
Employment: Employed
[2023-11-11 10:49] LABS: TSH Reflex To Free T4 0.91 uIU/ml (0.47-4.68)
[2023-11-11 10:54] LABS: Ferritin 39.5 ng/ml (11.1-264.0)
[2023-11-11 10:57] LABS: Erythrocyte Sed Rate 10 mm/hour (0-20)
[2023-11-11 11:25] LABS: Folate 15.4 ng/ml (2.76-20); Vitamin B12 977 pg/ml (239-931)
[2023-11-11 11:39] VITALS: BP 134/60
--- NOTE | 2023-11-11 12:18 | W.PN.HOSP.TC ---
Today's Communication/Plan
-
possible d/c later today if feels up to it
Assessment / Plan
Assessment / Plan
HPI: 53-year-old female past medical history of asthma, Catrachita-Danlos syndrome, ADHD, presented with vertigo. She was feeling her usual self until Tuesday when she got a massage. She was laying facedown and was asked to assume the supine position.
She developed an abrupt onset of nausea and spinning sensation. She was able to complete massage but when she stood up she again had an episode of vertigo. Since then she notes recurrent episodes particularly when she rolls over or moves a certain
way. She went to work and had an episode. On DOA, while having her eyelashes done she felt like she was going to fall when she sat up, this wsa associated nausea and dizziness described as spinning. Symptoms have not resolved. Denies any hearing
loss or tinnitus. She denies double vision, chest pain, shortness of breath, difficulty swallowing. She did have an episode of vertigo several years ago which was much less severe.
Daughter did notice that she had some slurred speech. She denies any recent falls.
She denies any weakness but did feel like her left leg was giving out from time to time but happens when she gets iliotibial band symptoms on her left leg.
She got Botox to her forehead 4 weeks ago. Over the past week her left eye started to feel slightly numb. No headache. No blurry vision.
Denies smoking or alcohol.
Intractable vertigo likely vestibular neuritis, rule out CVA--Facial numbness and tingling likely due to recent Botox--No nystagmus on examination--CTA head and neck without any vascular occlusion, aneurysm or dissection--MRI white matter changes no
acute stroke--Continue Valium as needed--Added prednisone 50 mg x7 days to cover R sided BPPV vs vestibular neuritis--Cont Vestibular therapy--apprec neuro--will need outpt MRIs as per neuro
Ehrlers Danlos syndrome
ADHD--Continue methylphenidate
Asthma
Full code
DVT prophylaxis�SCDs
Anticipated Discharge: Today
Subjective/Interval History
-
Date of Service: November 11, 2023
pt said her vertigo restarted after the VSE eval
Objective Data
-
Labs:
Laboratory Results
11/11/23
05:31
WBC 8.3
Hgb 13.5
Hct 40.1
Plt Count 219
Sodium 139
Potassium 3.7
Chloride 107
Carbon Dioxide 23
BUN 26 H
Creatinine 0.5 L
Glucose 101 H
Calcium 9.8
Vital Signs:
max temp for 24 hours
11/11/23
07:40
Temp 98.1 F
Vital Signs
Temp Pulse Resp BP Pulse Ox
98 F 72 16 134/60 97
11/11/23 11:39 11/11/23 11:39 11/11/23 11:39 11/11/23 11:39 11/11/23 11:39
I&O
11/10/23 11/11/23 11/12/23
06:59 06:59 06:59
Intake Total 120 / 120 1260 / 1260
Balance 120 / 120 1260 / 1260
Review of Systems
-
All other systems: Reviewed and negative
Neuro: Reports Dizzy
Physical Exam
-
General: Well Developed, Well Nourished and No Apparent Distress
HEENT: Normocephalic and Atraumatic
Respiratory: Clear to Auscultation; Negative Wheezes or Rhonchi
Cardiac: Regular Rhythm and S1/S2; Negative Murmur
GI: Soft, Nontender, Nondistended and Normal Bowel Sounds
Musculoskeletal: No Clubbing, No Cyanosis and No Edema
Neuro: Awake, Alert and Other (dizzy)
--- NOTE | 2023-11-11 13:19 | PTOTSP ---
SPEECH THERAPY SWALLOW EVALUATION:
Patient exhibits oropharyngeal swallow grossly within functional limits at this time. Swallow safety and efficiency appear to be intact. No signs or symptoms of aspiration are noted at this time. Patient does endorse 'lump' sensation on left side of
throat, which is present at baseline with dry swallow; Denies globus sensation with solids/liquids. Skilled ST services are not indicated at this time. Recommend Regular texture solids, thin liquids. Meds whole with liquids as best tolerated.
General aspiration precautions including: Upright positioning; Small single sips/bites; Slow rate of intake. Recommend MD follow-up for 'lump' sensation in throat. Further ST services are not indicated at this time; Sign off swallow therapy. Should
new swallowing difficulties arise or any signs/symptoms of aspiration occur, please re-consult ST.
RECOMMEND:
1) Regular texture solids, thin liquids
2) Meds whole with liquids as best tolerated
3) Aspiration precautions: Upright positioning; Small single sips/bites; Slow rate of intake
4) ST services are not indicated at this time
[2023-11-11 15:30] VITALS: BP 123/83
--- NOTE | 2023-11-11 16:14 | CM ---
Plan: Discharge to home today; will follow up with outpatient vestibular therapy as PT recommended; Nurse requested script from Attending
Daughter will provide ride home
--- NOTE | 2023-11-11 16:58 | W.DCSUMMARY ---
Discharge Summary
Discharge Data
Date of Admission: 11/09/23
Date of Discharge: 11/11/23
-
Pending Results: No
Hospital Course
Primary care physician : Fawad Woody
Principal Discharge diagnosis : Intractable vertigo likely due to vestibular neuritis
Chronic Discharge diagnosis : Catrachita-Danlos syndrome, attention deficit hyperactivity disorder, asthma
Hospital Course : Patient is a 53-year-old female who presented with vertigo. She was feeling at her baseline until she got a massage on the Tuesday prior to admission. She was lying facedown and then asked to assume the supine position. She had
abrupt onset of nausea and a spinning sensation. She was able to complete the massage but then when she stood up she had another episode of vertigo. Since that time she has had recurrent episodes particularly when she rolls in a certain way. She
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 Patient then was having her eyelashes done and felt like she was going to fall. She sat up and had associated nausea and dizziness. She denied any hearing loss or
tinnitus. She denied double vision, chest pain, shortness of breath. Patient did get Botox to her forehead 4 weeks prior to admission. Patient was brought in as observation.
Problem #1: Intractable vertigo likely due to vestibular neuritis. Patient was seen in consultation by neurology. Facial numbness and tingling was likely due to recent Botox. She had no nystagmus. CAT scan of her head and neck was without any
vascular occlusion, aneurysm, or dissection. MRI showed white matter changes without acute stroke. Value was continued as needed. She was started on prednisone 50 mg daily for 7 days. She was seen in consultation by physical therapy for
vestibular rehab. She is feeling better. She had a video swallow which caused her to change positions for the test; afterwards, she had a recurrence of the vertigo with occasional nausea. She is feeling better again after having vestibular rehab
today.
Problem #2: All other medical issues. These include Catrachita-Danlos syndrome, attention deficit hyperactivity disorder, asthma. These medical issues were stable during her hospitalization. Medications were continued as able.
Patient is stable for discharge home at this time. If any questions regarding this dictation or her hospital stay, please not hesitate to call. Our office number is [phone].
Important imaging findings :
MRI BRAIN IMPRESSION: No evidence of acute intracranial abnormality.
Mild to moderate T2 and FLAIR white matter hyperintensities, commonly seen with aging and usually attributed to small vessel ischemic disease. These are mainly within the frontal lobes. These white matter hyperintensities are nonspecific and can
also be seen in association with migraine headaches, presumably on the basis of vasculitis. These lesions can also be seen with demyelinating processes such as multiple sclerosis or Lyme disease. The distribution is not considered highly suggestive
of multiple sclerosis, although usually needs to be excluded on clinical grounds as well.
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 Further evaluation is advised with dedicated MRI of the brain/pituitary, which can serve as a
baseline exam for follow-up.
Paranasal sinus disease as described. Increased T2-weighted signal within the mastoid air cells, right greater than left, and most likely trapped fluid. Please correlate clinically for any signs or symptoms of mastoiditis.
HEAD CTA IMPRESSION: No significant vascular occlusion, aneurysm or dissection.
Discharge Plan
-
Patient Disposition: Home (Routine Discharge)
Discharge Diagnosis/Procedures: Peripheral vertigo likely due to vestibular neuritis, Catrachita-Danlos syndrome, attention deficit hyperactivity disorder, asthma
Condition: Good
Diet: As tolerated
Activity: As tolerated
Driving Restrictions: As prior to admission
Bathing Restrictions: None
Other Services: PT
Activity Restrictions/Additional Instructions:
outpatient MRI of the brain with and without contrast in the next month
outpatient MRI of the cervical spine with and without contrast in the next month
obtain script from PCP
should likely have outpatient vestibular rehab
Referrals:
Fawad Woody MD [Family Provider] - in less than 1 week
Prescriptions:
New
prednisone 50 mg Tablet
50 mg PO DAILY Qty: 4 0RF
Rx Instructions:
take for 4 more days
meclizine [Antivert] 25 mg tablet,chewable
12.5 mg PO TID PRN (Reason: dizziness) Qty: 10 0RF
Continued
methylphenidate HCl 5 mg tablet
5 mg PO QPM PRN (Reason: work focus)
Patient Comments:
11/09/2023: last filled 10/11/23, 30 tabs for 30 days from [id number]
Nutrafil
1 tab PO BID
methylphenidate HCl [Concerta] 27 mg tablet extended release 24hr
27 mg PO DAILY Qty: 0 0RF
Patient Comments:
11/09/2023: last filled 10/11/23, 30 tabs for 30 days from [id number]
Discharge Orders:
Discharge Patient (As Directed); Ordered 11/11/23
Ordered By: Jenn Browne
Discharge Date and Time
Discharge Date/Time: 11/11/23 16:23
Print Language: CROATIAN
[2023-11-13 03:11] LABS: ANA, IgG Reflex to HEp-2 None Detected (None Detected)
== END 2023-11-11 16:23 | disposition home or self-care (01) ==
LOC: 4 WEST ACU 23:46
PROVIDERS: Internal Medicine; ADMITTING PHYSICIAN Hospitalist; ATTENDING PHYSICIAN Internal Medicine; EMERGENCY PHYSICIAN Emergency Medicine; FAMILY PHYSICIAN Family Medicine; OTHER PHYSICIAN Student in an Organized Health Care Education/Training Program
DX: H81.399 Other peripheral vertigo, unspecified ear (principal); R11.0 Nausea; R51.9 Headache, unspecified; R13.10 Dysphagia, unspecified; Q79.60 Ehlers-Danlos syndrome, unspecified; R07.9 Chest pain, unspecified; J45.909 Unspecified asthma, uncomplicated; F90.9 Attention-deficit hyperactivity disorder, unspecified type; Z88.1 Allergy status to other antibiotic agents; Z88.6 Allergy status to analgesic agent; Z91.011 Allergy to milk products; Z88.5 Allergy status to narcotic agent; Z88.8 Allergy status to other drugs, medicaments and biological substances; Z90.49 Acquired absence of other specified parts of digestive tract; Z87.891 Personal history of nicotine dependence; Z91.018 Allergy to other foods; Z82.3 Family history of stroke; Z82.49 Family history of ischemic heart disease and other diseases of the circulatory system; Z82.0 Family history of epilepsy and other diseases of the nervous system
CPT/HCPCS: 70496; 70498; 70551; 74210; 80048; 80053; 82607; 82728; 82746; 84443; 85025; 85027; 85652; 86038; 86041; 92610; 93005; 96374; 96376; 97112; 97162; 99285; G0378; J1240; Q9967

== ENCOUNTER → 2023-11-26 14:42 | Outpatient (REF) | payer BC, SELFPAY | LOC: WDC 14:42 | PROVIDERS: ATTENDING PHYSICIAN Family Medicine | DX: Z12.31 Encounter for screening mammogram for malignant neoplasm of breast (principal) | CPT/HCPCS: 77063; 77067 ==

== ENCOUNTER → 2023-12-19 18:09 | Outpatient (REF) | payer BC, SELFPAY | LOC: MRI 18:09 | PROVIDERS: ATTENDING PHYSICIAN Family Medicine | DX: H81.399 Other peripheral vertigo, unspecified ear (principal); R90.82 White matter disease, unspecified | CPT/HCPCS: 70553; 72156; A9575 ==

== ENCOUNTER → 2024-01-10 06:32 | Day surgery (SDC) | payer BC, SELFPAY | LOC: GI 06:32 | PROVIDERS: ATTENDING PHYSICIAN Surgery | DX: Z12.11 Encounter for screening for malignant neoplasm of colon (principal); Z86.010 Personal history of colon polyps; K57.30 Diverticulosis of large intestine without perforation or abscess without bleeding | CPT/HCPCS: G0105 ==

== ENCOUNTER → 2024-06-22 14:36 | Outpatient (REF) | payer BC, SELFPAY | LOC: MRI 3T 14:36 | PROVIDERS: ATTENDING PHYSICIAN Internal Medicine Endocrinology, Diabetes & Metabolism; FAMILY PHYSICIAN Family Medicine; REFERRING PHYSICIAN Psychiatry & Neurology Neurology | DX: E23.6 Other disorders of pituitary gland (principal) | CPT/HCPCS: 70553; A9575 ==

== ENCOUNTER → 2024-12-01 09:35 | Outpatient (REF) | payer BC, SELFPAY | LOC: WDC 09:35 | PROVIDERS: ATTENDING PHYSICIAN Family Medicine | DX: Z12.31 Encounter for screening mammogram for malignant neoplasm of breast (principal); Z12.39 Encounter for other screening for malignant neoplasm of breast | CPT/HCPCS: 77063; 77067 ==